=== PATIENT | female | born 1960 | race Caucasian/White ===

== ENCOUNTER 2017-08-01 12:43 | Outpatient (CLI) | payer BC | END 2017-08-01 12:44 | disposition home or self-care (01) | LOC: BICMAMMO 12:43 | PROVIDERS: ATTEND Nurse Practitioner Family | DX: Z12.31 Encounter for screening mammogram for malignant neoplasm of breast (principal); R92.1 Mammographic calcification found on diagnostic imaging of breast | CPT/HCPCS: 77063; 77067 ==

== ENCOUNTER 2019-07-20 | Outpatient (CLI) | payer OTHER | END 2019-07-20 08:21 | disposition home or self-care (01) | DX: Z12.31 Encounter for screening mammogram for malignant neoplasm of breast (principal); Z85.828 Personal history of other malignant neoplasm of skin ==

== ENCOUNTER 2021-07-25 13:22 | Outpatient (CLI) | payer BC | END 2021-07-25 13:23 | disposition home or self-care (01) | LOC: BICMAMMO 13:22 | PROVIDERS: ATTEND Family Medicine | DX: Z12.31 Encounter for screening mammogram for malignant neoplasm of breast (principal); Z85.828 Personal history of other malignant neoplasm of skin | CPT/HCPCS: 77063; 77067 ==

== ENCOUNTER 2022-02-13 10:15 | Outpatient (CLI) | payer BC | END 2022-02-13 10:16 | disposition home or self-care (01) | LOC: RAD 10:15 | PROVIDERS: ATTEND Family Medicine | DX: M54.50 Low back pain, unspecified (principal); M47.816 Spondylosis without myelopathy or radiculopathy, lumbar region; M46.06 Spinal enthesopathy, lumbar region; M51.36 Other intervertebral disc degeneration, lumbar region; M51.37 Other intervertebral disc degeneration, lumbosacral region; M89.38 Hypertrophy of bone, other site | CPT/HCPCS: 72100 ==

== ENCOUNTER 2023-11-06 08:16 | Outpatient (CLI) | payer MEDICARE | END 2023-11-06 08:17 | disposition home or self-care (01) | LOC: BICMAMMO 08:16 | PROVIDERS: ATTEND Family Medicine | DX: N64.89 Other specified disorders of breast (principal); N63.12 Unspecified lump in the right breast, upper inner quadrant | CPT/HCPCS: 76642; 77065; G0279 ==

== ENCOUNTER 2024-10-06 12:55 | Outpatient (CLI) | payer MEDICARE | END 2024-10-06 12:56 | disposition home or self-care (01) | LOC: BICCT 12:55 | PROVIDERS: ATTEND Orthopaedic Surgery | DX: M17.11 Unilateral primary osteoarthritis, right knee (principal) ==

== ENCOUNTER 2024-10-13 06:13 | Inpatient (IN) | payer MEDICARE ==
[2024-10-06 10:08] VITALS: BMI 40.3
[2024-10-13] MEDS ORDERED: Bupivacaine 0.25% HCL 30 ML VIAL ONE (07:04)
[2024-10-13] MEDS ORDERED: Lidocaine 1% (PF) 30 ML VIAL ONE (07:43)
[2024-10-13] MEDS ORDERED: Ropivacaine 0.5% HCl/PF (150 MG/30 ML VIAL) ONE (07:43)
[2024-10-13] MEDS ORDERED: Vancomycin HCl 1.5 GM VIAL ONE (08:03)
[2024-10-13] MEDS ORDERED: Tranexamic Acid 1,000 MG/10 ML VIAL ONE (08:03)
[2024-10-13] MEDS ORDERED: CEFAZOLIN 2 GM VIAL ONE (08:05)
[2024-10-13] MEDS ORDERED: Ondansetron PF 4 MG/2 ML Vial IVP PRN (08:45)
[2024-10-13] MEDS ORDERED: Ropivacaine 0.2% 550 ML 550 ML NERVE BLCK SCH (08:45)
[2024-10-13] MEDS ORDERED: HYDROcodone/Acetaminophen 10/325 mg Tablet PO PRN ×2 (08:45)
[2024-10-13] MEDS ORDERED: PROPOFOL 20 ML ONE (08:50)
[2024-10-13] MEDS ORDERED: Lidocaine 1% PF 5 ML VIAL ONE (08:50)
[2024-10-13] MEDS ORDERED: Rocuronium Bromide 10 MG/ML (10ML VIAL) ONE (09:00)
[2024-10-13] MEDS ORDERED: PHENYLEPHRINE-NS 100 MCG/ML 10 ML SYRINGE ONE (09:19)
[2024-10-13] MEDS ORDERED: Ondansetron PF 4 MG/2 ML Vial ONE (09:21)
[2024-10-13] MEDS ORDERED: SUGAMMADEX SODIUM 200 MG/2 ML VIAL ONE (10:34)
[2024-10-13] MEDS ORDERED: fentaNYL PF 100 MCG/2 ML SYRINGE ONE ×2 (11:16→12:09)
[2024-10-13] MEDS ORDERED: diphenhydrAMINE 25 MG CAP PO PRN (11:39)
[2024-10-13] MEDS: Aspirin 81 mg Enteric Coated Tablet PO SCH ×2 (17:28→20:16)
[2024-10-13] MEDS: Ferrous Gluconate 324 MG TAB PO SCH ×2 (17:28→20:17)
[2024-10-13] MEDS: Senokot S 8.6-50 MG TAB PO SCH ×2 (17:29→20:23)
[2024-10-13] MEDS: Multivitamin W/ Minerals 1 TAB PO SCH (17:29)
[2024-10-13] MEDS: Ketorolac Tromethamine 30 MG (1 mL) VIAL IVP SCH ×2 (17:30→17:45)
[2024-10-13] MEDS: Ondansetron PF 4 MG/2 ML Vial IVP PRN (19:43)
[2024-10-14 07:08] LABS: Hematocrit 34.6 % (36.0-47.0); Hemoglobin 10.4 g/dL (12.0-16.0); Mean Corpuscular Hemoglobin 27.7 pg (27.0-31.0); Mean Corpuscular Volume 92.0 fL (78.0-98.0); Platelet Count 247 10x3/uL (130-400); Red Blood Cell (RBC) Count 3.76 mill/uL (4.20-5.40); White Blood Cell (WBC) Count 8.70 10x3/uL (4.8-10.8)
[2024-10-14] MEDS: Multivitamin W/ Minerals 1 TAB PO SCH (08:48)
[2024-10-14] MEDS: Acetaminophen 325 MG TAB PO PRN (14:34)
[2024-10-15 08:51] LABS: Hematocrit 35.2 % (36.0-47.0); Hemoglobin 10.6 g/dL (12.0-16.0); Mean Corpuscular Hemoglobin 27.7 pg (27.0-31.0); Mean Corpuscular Volume 91.9 fL (78.0-98.0); Platelet Count 231 10x3/uL (130-400); Red Blood Cell (RBC) Count 3.83 mill/uL (4.20-5.40); White Blood Cell (WBC) Count 8.22 10x3/uL (4.8-10.8)
[2024-10-15 12:10] VITALS: BP 143/79; TEMP 97.8
== END 2024-10-15 12:18 | disposition home or self-care (01) | DRG 470 ==
LOC: SDC 06:13 → SURG B 15:46 → SDC 10-14 14:21 → SURG B 10-14 14:22
PROVIDERS: ADMIT Orthopaedic Surgery; ATTEND Orthopaedic Surgery
PROC: 0SRC0JA Replacement of Right Knee Joint with Synthetic Substitute, Uncemented, Open Approach (ICD-10-PCS; principal; 2024-10-13)
PROC: 3E033XZ Introduction of Vasopressor into Peripheral Vein, Percutaneous Approach (ICD-10-PCS; 2024-10-13)
DX: M17.11 Unilateral primary osteoarthritis, right knee (principal); Z98.51 Tubal ligation status; Z90.49 Acquired absence of other specified parts of digestive tract; Z90.710 Acquired absence of both cervix and uterus; Z88.5 Allergy status to narcotic agent
CPT/HCPCS: 36415; 85027; A4306; C1713; C1776; C1889; J0169; J0665; J1100; J1885; J2250; J2405; J2704; J2795; J3010